=== PATIENT | female | born 1995 | race Caucasian/White ===

== ENCOUNTER 2018-08-01 02:28 | Emergency (ER) | payer BC ==
--- NOTE | 2018-08-01 02:38 | EDPHY ---
H & P Stated Complaint: right ankle injury Time Seen by Provider: 08/01/18 02:38 HPI/ROS: HPI CHIEF COMPLAINT: Right ankle pain. HISTORY OF PRESENT ILLNESS: Patient is otherwise healthy 23-year-old female except for the history of asthma, presents emergency room with right lateral ankle pain. Patient states she was walking tonight and caring somebody on her back, she inverted her right ankle and now has right lateral ankle pain discomfort and swelling. She is also highly intoxicated with alcohol. She states she had multiple drinks tonight. She complains of right lateral ankle pain and swelling. Past Medical History: Denies significant medical history except for asthma Past Surgical History: History of orthopedic surgeries Social History: Alcohol this evening. Family History: Noncontributory ROS REVIEW OF SYSTEMS: 10 Systems were reviewed and negative with the exception of the elements mentioned in the history of present illness. Exam Constitutional triage nursing summary reviewed, vital signs reviewed, awake/ alert. Eyes normal conjunctivae and sclera, EOMI, PERRLA. HENT normal inspection, atraumatic, moist mucus membranes, no epistaxis, neck supple/ no meningismus, no raccoon eyes. Respiratory clear to auscultation bilaterally, normal breath sounds, no respiratory distress, no wheezing. Cardiovascular rate normal, regular rhythm, no murmur, no edema, distal pulses normal. Gastrointestinal soft, non-tender, no rebound, no guarding, normal bowel sounds, no distension, no pulsatile mass. Genitourinary no CVA tenderness. Musculoskeletal : Right lower extremity: Swelling and tenderness noted over the right lateral malleolus. Closed injury. Good distal pulse, good cap refill , warm extremity, no signs of compartment syndrome. Tender palpation over the right lateral malleolus. no midline vertebral tenderness, full range of motion, no calf swelling, no tenderness of extremities, no meningismus, good pulses, neurovascularly intact. Skin pink, warm, & dry, no rash, skin atraumatic. Neurologic awake, alert and oriented x 3, AAOx3, moves all 4 extremities equally, motor intact, sensory intact, CN II-XII intact, normal cerebellar, normal vision, normal speech. Psychiatric normal mood/affect. Heme/Lymph/Immune no lymphadenopathy. Differential Diagnosis: Includes but is not limited to in a particular order ankle sprain ankle contusion, ankle fracture, ankle fracture dislocation Medical Decision Making: Plan for this patient x-ray right ankle, ice pack, and re-evaluate. Re-evaluation: X-ray of the right ankle reviewed, the so she lateral soft tissue swelling over the lateral malleolus. No evidence of acute fracture image interpreted by myself. Patient has been splinted in a posterior short-leg with stirrup for stabilization. I do recommend she has close follow-up with Orthopedics. She should call their for follow-up appointment. Recommend ice, elevation, NSAIDs. No compartment syndrome on exam. Neurologically intact post splint placement. Source: Patient - Personal History LMP (Females 10-55): 22-28 Days Ago Current Tetanus/Diphtheria Vaccine: Yes Current Tetanus Diphtheria and Acellular Pertussis (TDAP): Yes - Medical/Surgical History Hx Asthma: Yes Hx Chronic Respiratory Disease: No Hx Diabetes: No Hx Cardiac Disease: No Hx Renal Disease: No Hx Cirrhosis: No Hx Alcoholism: No Hx HIV/AIDS: No Hx Splenectomy or Spleen Trauma: No Other PMH: asthma, tonsillectomy - Social History Smoking Status: Never smoked Constitutional: Initial Vital Signs Temperature (C) 36.6 C 08/01/18 02:30 Heart Rate 103 H 08/01/18 02:30 Respiratory Rate 18 08/01/18 02:30 Blood Pressure 120/95 H 08/01/18 02:30 O2 Sat (%) 95 08/01/18 02:30 O2 Delivery Mode Room Air Allergies/Adverse Reactions: amoxicillin [From Augmentin] Allergy (Verified 08/01/18 02:32) clavulanic acid [From Augmentin] Allergy (Verified 08/01/18 02:32) coconut Allergy (Verified 08/01/18 02:32) Milk Containing Products [dairy] Allergy (Verified 08/01/18 02:32) Home Medications: Medication Instructions Recorded Iud 08/01/18 Departure - Departure Disposition: Home, Routine, Self-Care Clinical Impression: Ankle sprain Qualifiers: Encounter type: initial encounter Involved ligament of ankle: unspecified ligament Laterality: right Qualified Code(s): S93.401A - Sprain of unspecified ligament of right ankle, initial encounter Condition: Good Instructions: Ankle Sprain (ED) Additional Instructions: 1. Recommend ice, elevation 2. Splint for comfort. Do not get this wet 3. You need to follow up with Orthopedics call their For follow-up appointment 4. Recommend anti-inflammatory pain medicine like Tylenol and/or Motrin for pain control Referrals: NONE *PRIMARY CARE P,. [Primary Care Provider] - As per Instructions J Carlos Feliciano MD [Medical Doctor] - As per Instructions
[2018-08-01 04:04] VITALS: BP 117/91
== END 2018-08-01 04:05 | disposition home or self-care (01) ==
PROC: 2W3QX1Z Immobilization of Right Lower Leg using Splint (ICD-10-PCS; principal; 2018-08-01)
DX: S93.401A Sprain of unspecified ligament of right ankle, initial encounter (principal); X50.1XXA Overexertion from prolonged static or awkward postures, initial encounter; Y93.01 Activity, walking, marching and hiking